=== PATIENT | female | born 1980 | race Caucasian/White ===

== ENCOUNTER 2019-08-11 08:02 | Emergency (ER) | payer BC ==
[2019-08-11 08:22] VITALS: BP 106/69
--- NOTE | 2019-08-11 08:55 | UC ---
Eye Complaint HPI - HPI Summary HPI Summary: 38-year-old woman comes in with a chief complaint of right eye redness and drainage. Started yesterday with itching. Does have a mild sore throat this morning. Does not wear contacts. No known trauma. - History of Current Complaint Chief Complaint: UCEye Stated Complaint: RIGHT EYE Time Seen by Provider: 08/11/19 08:48 Pain Intensity: 0 - Allergies/Home Medications Allergies/Adverse Reactions: Allergies Allergy/AdvReac Type Severity Reaction Status Date / Time No Known Allergies Allergy Verified 08/11/19 08:22 PMH/Surg Hx/FS Hx/Imm Hx Previously Healthy: Yes - Surgical History Surgical History: Yes Surgery Procedure, Year, and Place: carpal tunnel and cyst removal to right hand - Family History Known Family History: Positive: Non-Contributory - Social History Alcohol Use: Rare Substance Use Type: Marijuana Substance Use Comment - Amount & Last Used: medical Smoking Status (MU): Former Smoker When Did the Patient Quit Smoking/Using Tobacco: 2 years ago Review of Systems All Other Systems Reviewed And Are Negative: Yes Constitutional: Positive: Negative Skin: Positive: Negative Eyes: Positive: Drainage - RT, Eye Redness - RT ENT: Positive: Sore Throat Respiratory: Positive: Negative Cardiovascular: Positive: Negative Gastrointestinal: Positive: Negative Motor: Positive: Negative Neurovascular: Positive: Negative Musculoskeletal: Positive: Negative Neurological: Positive: Negative Psychological: Positive: Negative Is Patient Immunocompromised?: No Physical Exam Triage Information Reviewed: Yes Appearance: Well-Appearing, No Pain Distress, Well-Nourished Vital Signs: Initial Vital Signs Temp 99.4 F 08/11/19 08:17 Pulse 89 08/11/19 08:17 Resp 18 08/11/19 08:17 BP 106/69 08/11/19 08:17 Pulse Ox 95 08/11/19 08:17 Vital Signs Reviewed: Yes Eyes: Positive: Conjunctiva Inflamed - RT, Discharge - RT, Other: - PERRLA EOMI. Eyelids are not swollen. ENT: Positive: Pharynx normal, TMs normal Neck: Positive: Supple Respiratory: Positive: Lungs clear, Normal breath sounds, No respiratory distress Cardiovascular: Positive: RRR Musculoskeletal: Positive: Strength Intact, ROM Intact Neurological: Positive: Alert, Muscle Tone Normal Psychological: Positive: Age Appropriate Behavior Skin Exam: Normal Eye Complaint Course/Dx - Course Course Of Treatment: Pharynx is not erythematous. Throat pain is minimal therefore is unlikely to strep throat. Patient reports that HER-2 children were tested negative for strep throat yesterday and therefore were not getting strep test at this time. - Differential Dx/Diagnosis Provider Diagnosis: Right conjunctivitis Discharge ED - Sign-Out/Discharge Documenting (check all that apply): Patient Departure All imaging exams completed and their final reports reviewed: No Studies - Discharge Plan Condition: Stable Disposition: HOME Prescriptions: Tobramycin 0.3% OPHTH.CHINMAY* 1 drop RIGHT EYE Q4H #1 btl Patient Education Materials: Conjunctivitis (ED) Referrals: [facility] [Primary Care Provider] - Additional Instructions: FOLLOW UP WITH YOUR DOCTOR IF NOT COMPLETELY IMPROVED. GET REEVALUATED SOONER IF NOT IMPROVING OR WORSE OR ANY QUESTIONS OR CONCERNS. - Billing Disposition and Condition Condition: STABLE Disposition: Home
== END 2019-08-11 09:02 | disposition home or self-care (01) ==
LOC: UCCORT 08:02
DX: H10.9 Unspecified conjunctivitis (principal); Z87.891 Personal history of nicotine dependence
CPT/HCPCS: 99202; G0463